=== PATIENT | male | born 1955 | race Caucasian/White ===

== ENCOUNTER → 2016-04-10 | Outpatient (CLI) | payer MEDICARE ==
[~2016-04-10] MED LIST: ALBU0.632 IH; ALPR0.5T72 PO; ASPI-906 PO; BARIUM SUSPENSION 105% (LIQUID POLIBAR PLUS) 240 ML/DOSE PO ONE; BARIUM SUSPENSION 60% (LIQUID EZ PAQUE) 240 ML DOSE PO ONE; BUDE6HFA IH; CHLO500T2 PO; CTLP20T PO; CYCL10TA9 PO; DICL75TA2 PO; FLUT1DIS26 IH; FURO20TA PO; GBPN100C PO; HYDR-757 PO; HYDR25TA4 PO; IBUP-15 PO; LISI1TAB PO; LISI40TA PO; MTF500T PO; NF-METANX PO; ROPI1TAB40 PO; SIMV40TA4 PO; TIOT18CA IH; TRAZ-144 PO; VIT D3 PO; ZANTAC PO; [UNRECOGNIZED DRUG - OTHER] TP
--- OUTSIDE RECORDS SUMMARY | 2016-04-10 11:05 | XMS REPORT ---
Author STARLA Watt [facility] eClinicalWorks Address Unknown Phone Unavailable Care Team Providers Care Meat Seafood Associate Name Role Phone STARLA RUIZ CP Unavailable Allergies, Adverse Reactions, Alerts Substance Reaction Event Type Codeine Sulfate itching Drug Allergy Problems Problem Type Condition Code Onset Dates Condition Status Assessment Thrush B37.0 Active Assessment Essential hypertension I10 Active Problem Essential hypertension I10 Active Problem CAD (coronary artery disease) 414.00 Active Problem Thrush B37.0 Active Problem Tobacco abuse 305.1 Active Problem Chronic bundle branch block 426.50 Active Problem Diabetes type 2, uncontrolled 250.02 Active Problem Hyperlipemia 272.4 Active Medications Medication Code System Code Instructions Start Date End Date Status Dosage Requip [facility] [address]-78 3 MG Orally Once a day September 13, 2014 1 tablet 1 to 3 hours before bedtime Albuterol ND 0 90 mcg/actuation Inhalation every 4 hours as needed Nov 2 puffs Ipratropium-Albuterol [facility] [address]-87 0.5-2.5 (3) MG/3ML Inhalation Four times a day July 21, [address] [place] [facility] [address]-35 5-325 MG Orally every 6 hrs severe pain only June 1 tablet as needed PredniSONE [facility] [address]-06 20 MG Orally Once a day Jan 09, 2015 Feb 08, 2015 3 tablets with food for 7 days, then 2 tablets daily for 5 days, then 1 tablet for [address] [facility] [address]-38 2 MG Orally Once a day in the AM April 21, [address] [facility] [address]-42 40 mg April 27, 2014 1 tablet by Oral route 1 time per day cholesterol Lisinopril [facility] 04408462167 40 MG take 1 tablet by Oral route 1 time per day Zantac [facility] 24878844520 150 MG Orally for heartburn Twice a day [address] [facility] [address]-[address] [facility] [address]-80 369036 UNIT/ML Mouth/Throat 4 times a day JanJan 31, [address] [facility] 12593053445 75 MG TAKE ONE TABLET BY MOUTH TWICE DAILY Jovanny AC [facility] [address]-02 100-10 MG/5ML Orally every 4 hrs Nov 10, 2014 5 ml prn cough Celexa [facility] [address]-22 40 MG Orally Once a day April 21, 2014 1 tablet by Oral route 1 time per day Procedures Procedure Coding System Code Date [facility] VISIT ESTABLISHED PATIENT CPT-4 G0467 Jan 17, 2015 Office Visit, Est Pt., Level 3 CPT-4 56849 Jan 17, 2015 STREP A ASSAY W/OPTIC CPT-4 67733 Jan 17, 2015 Vital Signs Date/Time: Jan 17, 2015 Temperature 98.8 F Weight 241.5 lbs Height 67 in BMI 37.82 Index Blood Pressure Diastolic 102 mmHg Blood Pressure Systolic 162 mmHg Cardiac Monitoring Heart Rate 100 bpm Results No Known Results Summary Purpose eClinicalWorks Submission
--- NOTE | 2016-04-10 13:01 | Diagnostic Imaging Report ---
EXAMINATION: Barium swallow. INDICATION: Choking. COMPARISON: There are no prior studies available for comparison. TECHNIQUE: A double contrast exam was performed. FINDINGS: The patient swallowed the contrast material without difficulty. There was no delay or obstruction to the passage of barium through the esophagus; however, multiple tertiary contractions were noted. These generally indicate ineffective peristalsis. There was a small sliding hiatal hernia but there was no evidence for reflux. The stomach and visualized small bowel are unremarkable for an acute abnormality. IMPRESSION: 1. There is no evidence for obstruction of the esophagus; however, the tertiary contractions do suggest that there is disordered motility of the esophagus. 2. There is a small hiatal hernia but there is no sign of reflux. 3. The stomach and proximal small bowel are unremarkable. Dictated by: Dictated on workstation # [id number]
== END ==
LOC: RAD 11:01
PROVIDERS: ATTEND Nurse Practitioner Family
DX: T17.310A Gastric contents in larynx causing asphyxiation, initial encounter (principal)
CPT/HCPCS: 74220

== ENCOUNTER → 2016-05-01 | Outpatient (CLI) | payer MEDICARE ==
[~2016-05-01] MED LIST changes: -BARIUM SUSPENSION 105% (LIQUID POLIBAR PLUS) 240 ML/DOSE PO ONE; -BARIUM SUSPENSION 60% (LIQUID EZ PAQUE) 240 ML DOSE PO ONE
--- OUTSIDE RECORDS SUMMARY | 2016-05-01 12:44 | XMS REPORT ---
Author Author STARLA RUIZ [facility] Address [address] [place] [address] Care Team Providers Care Wood Patternmaker Apprentice Name Role Phone STARLA RUIZ Unavailable PROBLEMS Type Condition ICD9-CM Code NMU25-RN Code Onset Dates Condition Status SNOMED Code Problem Restless legs syndrome G25.81 Active 222614696 Problem High risk medication use Z79.899 Active 748787549 Problem Non morbid obesity due to excess calories E66.09 Active 259045308 Problem Obesity (BMI 30-39.9) E66.9 Active 258405980 Problem Lesion of skin of face L98.9 Active 982411390249 Problem Dysthymia F34.1 Active 39681860 Problem Chronic left-sided low back pain with left-sided sciatica M54.42 Active 857061536 Problem Tobacco abuse Z72.0 Active 848471692 Problem Tobacco abuse counseling Z71.6 Active 005665394 Assessment Chronic left-sided low back pain with left-sided sciatica M54.42 Oct, Active 754155419 Problem Chronic bundle branch block 426.50 Active 7767667 Assessment Colon cancer screening Z12.11 Oct, Active 071528136 Problem CAD (coronary artery disease) 414.00 Active 11265647 Problem Essential hypertension I10 Active 21080492 Problem Tobacco abuse 305.1 Active 94574255 Problem Thrush B37.0 Active 23147745 Problem Hyperlipemia 272.4 Active 40752347 Problem Seborrhea capitis L21.0 Active 151518299 ALLERGIES Substance Reaction Event Type Date Status Codeine Sulfate itching Drug Allergy Oct, Active SOCIAL HISTORY No smoking Hx information available PLAN OF CARE VITAL SIGNS Height 67 in 2015-11-15 Weight 239.3 lbs 2015-11-15 Heart Rate 87 bpm 2015-11-15 Respiratory Rate 16 2015-11-15 BMI 37.48 kg/m2 2015-11-15 Blood pressure systolic 110 mmHg 2015-11-15 Blood pressure diastolic 72 mmHg 2015-11-15 MEDICATIONS Medication Instructions Dosage Frequency Start Date End Date Duration Status Ketoconazole 1 % Externally 3 times per week with shower 1 application to scalp as needed Feb, Active Aspirin Adult Low Dose 81 MG Orally Once a day 1 tablet 24h Active Alprazolam 0.5 MG Orally Twice a day 1 tablet prn severe anxiety 12h Jul Active Cyclobenzaprine HCl 10 mg Orally 2 times a day 1 tablet prn 12h Active Albuterol 90 mcg/actuation Inhalation every 4 hours as needed 2 puffs Nov, 30 days Active Celebrex 200 mg Orally Once a day 1 capsule 24h June, Active Lisinopril 40 MG TAKE ONE TABLET BY MOUTH ONCE DAILY. 30 Active Ipratropium-Albuterol 0.5-2.5 (3) MG/3ML Inhalation Four times a day 3 ml 6h Jul, 30 days Active Celexa 40 mg Orally Once a day 1 tablet by Oral route 1 time per day 24h Active Symbicort 160-4.5 MCG/ACT Inhalation Twice a day 2 puffs 12h Active Ropinirole HCl 1 MG Orally Once a day in the am 24h Active Zantac 150 MG Orally for heartburn Twice a day 1 tablet 12h 30 Active [place]arr 5-325 MG Orally 2 times a day 1 tablet as needed 12h June, Active Simvastatin 40 MG TAKE 1 TABLET DAILY FOR CHOLESTEROL 90 Active Requip 3 MG Orally Once a day 1 tablet 1 to 3 hours before bedtime 24h Active Hydrochlorothiazide 25 MG 1 tablet Once a day Orally Active RESULTS No Results PROCEDURES Procedure Date Ordered Related Diagnosis Body Site [facility] VISIT ESTABLISHED PATIENT Nov 15, 2015 Office Visit, Est Pt., Level 4 Nov 15, 2015 IMMUNIZATIONS No Known Immunizations
--- NOTE | 2016-05-01 13:28 | Diagnostic Imaging Report ---
CLINICAL INDICATION: Patient with chronic sinusitis and congestion. EXAM: Axial maxillofacial CT scan performed without IV contrast with coronal reformations. COMPARISON: None. FINDINGS: PARANASAL SINUSES: FRONTAL: There is mild mucosal thickening with obstruction of the left frontal recess region. ETHMOID: There is mild patchy mucosal thickening. MAXILLARY: There is a moderate-sized air-fluid level and mild to moderate peripheral mucosal thickening involving the left maxillary sinus. The right maxillary sinus shows no significant sinus disease. SPHENOID: Unremarkable. OTHER PARANASAL SINUS FINDINGS: None. NASAL SEPTUM: There is roughly 6 mm of rightward nasal septal deviation. There is a 6 mm rightward directed nasal septal bony spur. There is encroachment upon the right inferior nasal turbinate. VISUALIZED TEMPORAL BONE STRUCTURES: Unremarkable. BONY STRUCTURES: Unremarkable. EXTRACRANIAL SOFT TISSUE/ ORBITS: There is fatty infiltration of the left parotid gland. There may also be postop changes in this region as well. IMPRESSION: 1: There is moderate to severe left maxillary sinusitis including air-fluid level. 2: There is mild mucosal thickening involving the frontal sinus and ethmoid sinus. 3: There is significant rightward nasal septal deviation and a rightward directed nasal septal bony spur. 4: Fatty infiltration of the left parotid gland. There may also be postop changes in this region as well. Clinical correlation would better evaluate. Dictated by: Dictated on workstation # [id number]
--- NOTE | 2016-05-01 15:10 | Diagnostic Imaging Report ---
INDICATION: Arthritis. Pain in knuckles.. TECHNIQUE: Three views of the bilateral hands at 1:10 PM. CORRELATION STUDY: None. FINDINGS: LEFT HAND: Mild degenerative change with joint space narrowing and osteophyte formation of the interphalangeal joints of the left hand. The metacarpal/phalangeal joints are unremarkable. The carpal bones appear relatively unremarkable. There is mild narrowing of the radiocarpal row with what appears to be likely cystic change about the distal radius. Probable ununited ulnar styloid process fracture. RIGHT HAND: There is deformity about the right fifth metacarpal, likely owing to prior fracture. No acute bony abnormality. There are mild degenerative changes through the interphalangeal joints with minimal narrowing and osteophyte formation. Very mild degenerative change of the first carpal/metacarpal articulation with mild joint space narrowing and minimal radial subluxation. Small cystic change in the superior pole of the scaphoid bone. Narrowing of the radiocarpal row. IMPRESSION: Very mild degenerative changes through the interphalangeal joints of both hands. There also appear to be very mild early degenerative changes at the base of the thumbs, particularly on the right. Narrowing of the radiocarpal row, left greater than right. Dictated by: Dictated on workstation # [id number]
== END ==
LOC: RAD 12:40
PROVIDERS: ATTEND Nurse Practitioner Family
DX: J01.00 Acute maxillary sinusitis, unspecified (principal); J34.2 Deviated nasal septum; J34.89 Other specified disorders of nose and nasal sinuses; K11.8 Other diseases of salivary glands
CPT/HCPCS: 70486

== ENCOUNTER → 2020-01-11 | Outpatient (CLI) | payer MEDICARE ==
[~2020-01-11] MED LIST changes: +RT-ALBUTEROL SULF 2.5 MG/3 ML PRE-MIX VIAL INH ONE
== END ==
LOC: RT 12:35
PROVIDERS: ATTEND Nurse Practitioner Family
DX: R06.02 Shortness of breath (principal)
CPT/HCPCS: 94060; 94726; 94729

== ENCOUNTER 2022-02-03 16:41 | Emergency (ER) | payer MEDICARE ==
[~2022-02-03] VITALS: Ht 167.7 cm; Wt 118.8 kg
[~2022-02-03 16:41] MED LIST changes: -RT-ALBUTEROL SULF 2.5 MG/3 ML PRE-MIX VIAL INH ONE
[2022-02-03] MEDS ORDERED: morphine INJ 10 MG/ML 1ML (SYR OR VIAL) IVP STA (17:05)
[2022-02-03 17:15] LABS: BASOPHILS % (AUTO) 0 % (0-10); EOSINOPHILS # (AUTO) 0.1 10^3/uL (0.0-0.3); EOSINOPHILS % (AUTO) 1 % (0-10); HEMATOCRIT 38 % (40-54); HEMOGLOBIN 12.8 g/dL (13.3-17.7); LYMPHOCYTES % (AUTO) 10 % (12-44); MEAN CORPUSCULAR HEMOGLOBIN 29 pg (25-34); MEAN CORPUSCULAR HGB CONC 34 g/dL (32-36); MEAN CORPUSCULAR VOLUME 86 fL (80-99); MEAN PLATELET VOLUME 9.1 fL (9.0-12.2); MONOCYTES # (AUTO) 0.5 10^3/uL (0.0-1.0); MONOCYTES % (AUTO) 5 % (0-12); NEUTROPHILS # (AUTO) 7.9 10^3/uL (1.8-7.8); NEUTROPHILS % (AUTO) 82 % (42-75); PLATELET COUNT 264 10^3/uL (130-400); WHITE BLOOD COUNT 9.6 10^3/uL (4.3-11.0)
--- NOTE | 2022-02-03 17:51 | ED General ---
General Chief Complaint: Abdominal/GI Problems Stated Complaint: SOA/BLOOD IN STOOL/UTI SYMPTOMS Nursing Triage Note: PT TO RM 5 VIA WC W REPORTS OF BLEEDING IN ABD, UTI SYMPTOMS, AND SOA - PT TACHYPNEIC DURING TRIAGE. PT BROTHER AT BEDSIDE, STATES HE WAS AT [facility] FOR APPROX 10 HRS WHEN PT GOT TIRED OF WAITING AND DECIDED TO COME TO [place] [facility]. PT A&OX4, REPORTS HE WAS TOLD AT [facility] THAT HE'S EXPERIENCING ABD BLEEDING AND ADVISED TO GO TO [place]. Source of Information: Patient Exam Limitations: No Limitations (GENARO SOLORIO MD) History of Present Illness Date Seen by Provider: Feb 03, 2022 Time Seen by Provider: 16:50 Initial Comments This 67-year-old gentleman presents to the emergency room with complaints of abdominal pain, shortness of breath, dysuria, and melena. He was seen at a clinic in [place], [place] and 2 days ago. They were concerned about a possible GI bleed and referred him to the [place] [facility]. He had a prolonged wait in the waiting room and decided to leave before being seen. He was diagnosed with urinary tract infection and started on antibiotics including Cipro and Macrobid. He believes the antibiotics caused him the abdominal pain. He is quite short of breath and wheezing on arrival. He uses an albuterol inhaler and nebulizers at home. He has significant upper abdominal pain but denies nausea, vomiting, diarrhea, or constipation. He has had black melena. He is not anticoagulated. He is febrile on assessment with a temperature of 38.4. He was not aware that he had a fever. He also is unable to urinate and that may have obstruction. 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 (GENARO SOLORIO MD) Allergies and Home Medications Allergies Coded Allergies: codeine (Unverified Allergy, Unknown, 07/19/14) Patient Home Medication List Home Medication List Reviewed: Yes (GENARO SOLORIO MD) Albuterol Sulfate (Albuterol Sulfate 0.63 Mg/3 Ml Ns) 0.63 Mg/3 Ml Vial.neb, 1 EACH IH Q6HR, (Reported) Entered as Reported by: JAMES KAUFMAN on 1/9/13 1504 Alprazolam (Alprazolam) 0.5 Mg Tab.rapdis, 1 EACH PO HS PRN, (Reported) Entered as Reported by: JAMES KAUFMAN on 02/26/12 150 Aspirin (Juan A Chewable) 81 Mg Tab.chew, 81 MG PO DAILY Prescribed by: EUGENE GRIFFIN on 07/19/14906 Budesonide/Formoterol Fumarate (Symbicort 160/4.5 Mcg (Non-Formulary)) 1 Inhaler Aero, 2 PUFF IH BID, (Reported) Entered as Reported by: NICKY MONTES on 07/19/14738 Citalopram Hydrobromide (Celexa) 20 Mg Tablet, 1 EACH PO DAILY, (Reported) Entered as Reported by: JAMES KAUFMAN on 02/26/121503 Cyclobenzaprine Hcl (Cyclobenzaprine Hcl) 10 Mg Tablet, 1 EACH PO BID PRN for PRN, (Reported) Entered as Reported by: NICKY MONTES on 07/19/14738 Dexamethasone (Dexamethasone) 6 Mg Tablet, 6 MG PO DAILY Prescribed by: SERGEI DE LEON on 02/03/221924 Diclofenac Sodium (Diclofenac Sodium) 75 Mg Tablet.dr, 75 MG PO BID, (Reported) Entered as Reported by: NICKY MONTES on 07/19/14738 Hydrochlorothiazide (Hydrochlorothiazide) 25 Mg Tablet, 25 MG PO DAILY, (Reported) Entered as Reported by: NICKY MONTES on 07/19/14738 Hydrocodone Bit/Acetaminophen ([place] 5-325 Tablet) 1 Each Tablet, 1 EA PO Q6H PRN for MILD PAIN, (Reported) Entered as Reported by: NICKY MONTES on 07/19/14738 Lisinopril (Prinivil) 40 Mg Tablet, 40 MG PO DAILY, (Reported) Entered as Reported by: NICKY MONTES on 07/19/14738 Pantoprazole Sodium (Protonix) 40 Mg Tablet.dr, 40 MG PO DAILY Prescribed by: SERGEI DE LEON on 02/03/221924 Ropinirole Hcl (Requip) 1 Mg Tablet, 1 MG PO DAILY, (Reported) Entered as Reported by: NICKY MONTES on 07/19/14738 Simvastatin (Simvastatin) 40 Mg Tablet, 40 MG PO DAILY, (Reported) Entered as Reported by: JAMES KAUFMAN on 02/26/12 1504 Trazodone Hcl (Trazodone Hcl) 50 Mg Tablet, 50 MG PO DAILY, (Reported) Entered as Reported by: NICKY MONTES on 07/19/14738 [Vit D3] , 1,000 UNITS PO DAILY, (Reported) Entered as Reported by: NICKY MONTES on 07/19/14738 [Zantac] , 150 MG PO BID, (Reported) Entered as Reported by: NICKY MONTES on 07/19/14738 Review of Systems Review of Systems Constitutional: see HPI EENTM: no symptoms reported Respiratory: see HPI Cardiovascular: no symptoms reported Gastrointestinal: see HPI Musculoskeletal: no symptoms reported Skin: no symptoms reported Psychiatric/Neurological: No Symptoms Reported Hematologic/Lymphatic: No Symptoms Reported Immunological/Allergic: no symptoms reported (GENARO SOLORIO MD) Past Fepkkhz-Xolaot-Pvtygc Hx Patient Social History Tobacco Use?: Yes Tobacco type used: Cigarettes Smoking Status: Current Everyday Smoker Use of E-Cig and/or Vaping dev: No Substance use?: No Alcohol Use?: No (GENARO SOLORIO MD) Past Medical History Surgeries: Yes Appendectomy, Cardiac (Cardiac cath 2014 demonstrating mild to moderate disease without intervention), Gallbladder, Orthopedic (Cervical spine fusion) Respiratory: Yes Sleep Apnea, COPD, Emphysema Cardiac: Yes (History SVT) Coronary Artery Disease, High Cholesterol, Hypertension, Syncope Neurological: Yes (Restless leg syndrome) Reproductive Disorders: No Genitourinary: No Gastrointestinal: No Hiatal Hernia Musculoskeletal: No (GENARO SOLORIO MD) Physical Exam-Suspected Sepsis Physical Exam Vital Signs Vital Signs - First Documented 02/03/22 16:50 Temp 38.4 Pulse 100 Resp 28 B/P (MAP) 154/97 (116) Pulse Ox 99 O2 Delivery Nasal Cannula O2 Flow Rate 3.00 (SERGEI DE LEON DO) Vital Signs Capillary Refill : Less Than 3 Seconds (GENARO SOLORIO MD) Blood Pressure Mean: 116 Height, Weight, BMI Height: 5'7.00" Weight: 229lbs. oz. 103.749854jt; 42.00 BMI Method: General Appearance: WD/WN, Moderate Distress, Obese HEENT: PERRL/EOMI, Normal ENT Inspection, Other (Mucous membranes dry) Neck: Normal Inspection; No JVD Respiratory: Accessory Muscle Use; No Crackles; Wheezing, Other (Tachypnea) Cardiovascular: No Edema, No Murmur, Tachycardia Gastrointestinal: Soft; No Distended; Tenderness (Across the upper abdomen) Extremity: Normal Inspection, No Pedal Edema Neurologic/Psychiatric: Alert, Oriented x3, No Motor/Sensory Deficits, Normal Mood/Affect Skin: normal color, warm/dry (GENARO SOLORIO MD) Focused Exam Sepsis Stage: Ruled Out Reason for ruling out sepsis: DOES NOT MEET CRITERIA Possible Source: Pulmonary Lactate Level 02/03/22 17:00: Lactic Acid Level 1.24 (SERGEI DE LEON DO) Time of Focused Exam: 19:00 Respiratory: No Accessory Muscle Use, No Respiratory Distress, Wheezing (FAINT EXPIRATORY WHEEZING) Cardiovascular: Regular Rate, Rhythm, No Murmur Capillary Refill: Less Than 3 Seconds Lactic Acid Level Laboratory Tests Test 02/03/22 17:00 Lactic Acid Level 1.24 MMOL/L (0.50-2.00) (SERGEI DE LEON DO) Within 3hrs of presentation: Blood cultures prior to ABX's, Focus exam, Lactate level, Other (NO ANTIBIOTICS PT HAS COVID--TREATED WITH PAXLOVID) (SERGEI DE LEON DO) Progress/Results/Core Measures Suspected Sepsis SIRS Temperature: Pulse: 100 Respiratory Rate: 28 Laboratory Tests 02/03/22 17:00: White Blood Count 9.6 Blood Pressure 154 /97 Mean: 116 02/03/22 17:00: Lactic Acid Level 1.24 Laboratory Tests 02/03/22 17:00: Creatinine 1.05, INR Comment 1.0, Platelet Count 264, Total Bilirubin 0.3 (GENARO SOLORIO MD) Results/Orders Lab Results Laboratory Tests Test 02/03/22 17:00 02/03/22 17:05 02/03/22 17:07 Range/Units White Blood Count 9.6 4.3-11.0 10^3/uL Red Blood Count 4.41 4.30-5.52 10^6/uL Hemoglobin 12.8 L 13.3-17.7 g/dL Hematocrit 38 L 40-54 % Mean Corpuscular Volume 86 80-99 fL Mean Corpuscular Hemoglobin 29 25-34 pg Mean Corpuscular Hemoglobin Concent 34 32-36 g/dL Red Cell Distribution Width 12.3 10.0-14.5 % Platelet Count 264 130-400 10^3/uL Mean Platelet Volume 9.1 9.0-12.2 fL Immature Granulocyte % (Auto) 1 % Neutrophils (%) (Auto) 82 H 42-75 % Lymphocytes (%) (Auto) 10 L 12-44 % Monocytes (%) (Auto) 5 0-12 % Eosinophils (%) (Auto) 1 0-10 % Basophils (%) (Auto) 0 0-10 % Neutrophils # (Auto) 7.9 H 1.8-7.8 10^3/uL Lymphocytes # (Auto) 1.0 1.0-4.0 10^3/uL Monocytes # (Auto) 0.5 0.0-1.0 10^3/uL Eosinophils # (Auto) 0.1 0.0-0.3 10^3/uL Basophils # (Auto) 0.0 0.0-0.1 10^3/uL Immature Granulocyte # (Auto) 0.1 0.0-0.1 10^3/uL Prothrombin Time 13.6 12.2-14.7 SEC INR Comment 1.0 0.8-1.4 Activated Partial Thromboplast Time 25 24-35 SEC Sodium Level 143 135-145 MMOL/L Potassium Level 3.4 L 3.6-5.0 MMOL/L Chloride Level 107 98-107 MMOL/L Carbon Dioxide Level 25 21-32 MMOL/L Anion Gap 11 5-14 MMOL/L Blood Urea Nitrogen 22 H 7-18 MG/DL Creatinine 1.05 0.60-1.30 MG/DL Estimat Glomerular Filtration Rate 77 BUN/Creatinine Ratio 21 Glucose Level 109 H 70-105 MG/DL Lactic Acid Level 1.24 0.50-2.00 MMOL/L Calcium Level 8.9 8.5-10.1 MG/DL Corrected Calcium 9.1 8.5-10.1 MG/DL Total Bilirubin 0.3 0.1-1.0 MG/DL Aspartate Amino Transf (AST/SGOT) 60 H 5-34 U/L Alanine Aminotransferase (ALT/SGPT) 59 H 0-55 U/L Alkaline Phosphatase 75 40-136 U/L C-Reactive Protein High Sensitivity 4.45 H 0.00-0.50 MG/DL Total Protein 6.8 6.4-8.2 GM/DL Albumin 3.8 3.2-4.5 GM/DL Lipase 92 H 8-78 U/L Procalcitonin 0.09 <0.10 NG/ML B-Type Natriuretic Peptide 109.8 H <100.0 PG/ML Influenza Type A (RT-PCR) Not Detected Not Detecte Influenza Type B (RT-PCR) Not Detected Not Detecte SARS-CoV-2 RNA (RT-PCR) Detected H Not Detecte (SERGEI DE LEON DO) My Orders Orders - SERGEI DE LEON DO Ct [facility] Chest/Noang Abd-Pelv W (02/03/22 18:31) Rx-Nirmatrelvir/Ritonavir(Eua) (Rx-Paxlo (02/03/22 19:30) Fluticasone/Salmeterol 113-14 (Airduo Re (02/03/22 21:00) Fluticasone/Salmeterol 113-14 (Airduo Re (02/03/22 19:23) (SERGEI DE LEON DO) Medications Given in ED Current Medications Medications Dose Ordered Sig/Zahraa Route Start Time Stop Time Status Last Admin Dose Admin Albuterol/ Ipratropium 3 ml ONCE ONCE INH 02/03/22 18:30 121822 18:31 DC 02/03/22 19:04 3 ML Dexamethasone Sodium Phosphate 6 mg ONCE ONCE IV 02/03/22 18:15 02/03/22 18:17 DC 02/03/22 18:25 6 MG Iohexol 100 ml ONCE ONCE IV 02/03/22 18:30 02/03/22 18:31 DC 02/03/22 18:45 99 ML Sodium Chloride 100 ml ONCE ONCE IV 02/03/22 18:30 02/03/22 18:31 DC 02/03/22 18:45 70 ML (SERGEI DE LEON DO) Vital Signs/I&O 02/03/22 02/03/22 16:50 19:05 Temp 38.4 Pulse 100 Resp 28 B/P (MAP) 154/97 (116) Pulse Ox 99 97 O2 Delivery Nasal Cannula Nasal Cannula O2 Flow Rate 3.00 3.00 (SERGEI DE LEON DO) Vital Signs/I&O Capillary Refill : Less Than 3 Seconds (GENARO SOLORIO MD) Blood Pressure Mean: 116 Progress Note : Time: 18:07 Progress Note Patient was treated with morphine and was given 4 puffs off of his inhaler with a spacer. He feels significantly improved after those interventions. COVID-[address] of the abdomen and pelvis is pending. Labs are also pending. (GENARO SOLORIO MD) Progress Note : Progress Note 1830--ASSUMED CARE OF PT AT SHIFT CHANGE, PT IS COVID +. DUO NEB TREATMENT HAS BEEN ORDERED. PT HAS RECEIVED DEXAMETHASONE. CT ANGIO CHEST/ABDOMEN-PELVIS IS PENDING. VITALS ARE STABLE. BROTHER AND PT STATE THAT HIS BREATHING DIFFICULTY JUST GOT BAD TODAY, AND WERE UNAWARE OF FEVER UNTIL ARRIVING IN ER REVIEWED ALL TEST RESULTS WITH PT AND HIS BROTHER, WITH WHOM HE LIVES. DISCUSSED ANTICIPATED COURSE, SYMPTOMATIC TREATMENT, PRESCRIPTIONS, NEED FOR QUARANTINE, NEED FOR FOLLOW UP AND RETURN PRECAUTIONS. WILL HAVE PT FOLLOW UP WITH DR. KRUSE FOR REPORTED MELENA. NO CT ABNORMALITIES OF COLON WERE NOTED PT DID NOT HAVE ANY STOOLS DURING ER STAY. HE DID NOT GIVE A URINE SPECIMEN DURING ER STAY. SPACER SENT HOME WITH PT, WELL AIR DUO INHALER, AND PAXLOVID. (SERGEI DE LEON DO) Diagnostic Imaging Diagonstic Imaging: Xray Plain Films/CT/US/NM/MRI: chest Comments Chest x-ray viewed by me and report reviewed. See report below: NAME: SH[facility] REC#: [id number] PT STATUS: REG ER : 1955 PHYSICIAN: GENARO SOLORIO MD ADMIT DATE: 02/03/22/ER Signed Date of Exam:02/03/22 CHEST 1 VIEW, AP/PA ONLY CHEST 1 VIEW, AP/PA ONLY Indication: Cough and shortness of air Comparison: None available. Findings: No focal airspace disease in the visualized lungs. No pleural effusion or pneumothorax. Normal cardiomediastinal silhouette. Impression: 1. No acute cardiopulmonary process by portable radiography. Dictated by: Dictated on workstation # [id number] Dict: 02/03/221748 Trans: 02/03/221749 [facility] [id number] Interpreted by: FABRICIO BEEBE MD Electronically signed by: FABRICIO BEEBE MD 02/03/221749 (GENARO SOLORIO MD) Comments CT ANGIOGRAM OF CHEST / ABDOMEN-PELVIS--PER RADIOLOGIST REPORT AT 1910 FINDINGS: CTA CHEST: No pulmonary emboli. No features of right ventricular strain or pulmonary hypertension. Heart is normal in size without pericardial effusion. Normal caliber thoracic aorta without dissection or penetrating atherosclerotic ulcer. No supraclavicular or axillary lymphadenopathy. No mediastinal or hilar lymphadenopathy. No pleural effusion or pneumothorax. No abnormality in the trachea. There is no pneumonia or edema. There are a few scattered calcified pulmonary nodules indicative of old granulomatous infection. No acute osseous abnormality. CT ABDOMEN AND PELVIS WITH CONTRAST: No free intraperitoneal air or fluid. The liver is normal. Cholecystectomy with mild dilation of the common bile duct due to reservoir effect. Spleen and pancreas are normal in appearance. No adrenal mass. Bilateral renal cysts are minimally complicated with partial rim calcifications. No solid renal mass or obstructive uropathy. Prostate is not enlarged. Stomach is decompressed, limiting assessment. No dilated loops of small bowel or features of active enteritis. No pericolonic inflammatory change. No abdominal or pelvic lymphadenopathy. Normal caliber abdominal aorta without dissection. No concerning focal osseous lesion. IMPRESSION: 1. No acute cardiopulmonary process. Specifically, no pulmonary emboli. 2. No acute obstructive or inflammatory process in the abdomen or pelvis. There are no features of colitis, diverticulitis or active enteritis. 3. Additionally, there are no features of active GI bleed. CXR--PER RADIOLOGIST REPORT --PRIOR TO MY ARRIVAL Findings: No focal airspace disease in the visualized lungs. No pleural effusion or pneumothorax. Normal cardiomediastinal silhouette. Impression: 1. No acute cardiopulmonary process by portable radiography. Reviewed: Reviewed by Me (SERGEI DE LEON DO) Departure Impression Primary Impression: COVID-19 Additional Impressions: COPD exacerbation Melena Upper abdominal pain Disposition: HOME, SELF-CARE Condition: Stable Departure-Patient Inst. Decision time for Depature: 19:20 (SERGEI DE LEON DO) [facility] Primary Care Physician Patient Instructions: Bloody Stools, Adult (DC), COPD Exacerbation, Adult ED, COVID-19 ED, COVID-19 Home Care/Discharge, Nirmatrelvir and Ritonavir FDA Fact Sheet, Preventing the Spread of an Infectious Disease Add. Discharge Instructions: HOME, REST TAKE PAXLOVID PRESCRIBED FOR COVID USE YOUR AIR-DUO INHALER TWICE A DAY EVERY DAY YOU MAY USE YOUR ALBUTEROL INHALER EVERY 4 HOURS NEEDED--USE SPACER AT ALL TIMES. TYLENOL AND MOTRIN NEEDED FOR PAIN OR FEVER LOTS OF CLEAR LIQUIDS FOLLOW UP WITH [facility] IN 3-4 DAYS IF NO BETTER, RETURN TO ER IF WORSE FOLLOW UP WITH DR. KRUSE, GENERAL SURGEON, FOR FURTHER EVALUATION OF REPORTED BLOOD IN STOOLS. CALL IN THE MORNING TO SCHEDULE AN APPOINTMENT. All discharge instructions reviewed with patient and/or family. Voiced understanding. Scripts Dexamethasone (Dexamethasone) 6 Mg Tablet 6 MG PO DAILY, #10 TAB Prov: SERGEI DE LEON DO 02/03/22 Pantoprazole Sodium (Protonix) 40 Mg Tablet.dr 40 MG PO DAILY, #15 TAB Prov: SERGEI DE LEON DO 02/03/22 Copy Copies To 1: [facility]/GENARO JACINTO MD Feb 03, 2022 17:51 SERGEI DE LEON DO Feb 03, 2022 19:11
[2022-02-03 17:53] LABS: PROTHROMBIN TIME PATIENT 13.6 SEC (12.2-14.7)
[2022-02-03 18:03] LABS: ALBUMIN 3.8 GM/DL (3.2-4.5); POTASSIUM 3.4 MMOL/L (3.6-5.0)
[2022-02-03 18:04] LABS: CALCIUM 8.9 MG/DL (8.5-10.1)
[2022-02-03 18:06] LABS: TOTAL PROTEIN 6.8 GM/DL (6.4-8.2)
[2022-02-03 18:07] LABS: BILIRUBIN,TOTAL 0.3 MG/DL (0.1-1.0)
[2022-02-03 18:09] LABS: CREATININE SERUM 1.05 MG/DL (0.60-1.30)
[2022-02-03] MEDS ORDERED: IOHEXOL 350 MG/ML 100 ML (OMNIPAQUE 350) VIAL IV ONE (18:30)
[2022-02-03] MEDS ORDERED: RT-ALBUTEROL/IPRATROPIUM 3 ML (DUONEB) VIAL INH ONE (18:30)
[2022-02-03] MEDS ORDERED: NS 100 ML (IVPB) BAG IV ONE (18:30)
--- NOTE | 2022-02-03 19:07 | Diagnostic Imaging Report ---
INDICATION: Chest pain and abdominal pain. GI bleed. TECHNIQUE: CTA chest, abdomen and pelvis. Thin axial sections through the chest, abdomen and pelvis are obtained following intravenous contrast bolus. Multiplanar MIP images were reconstructed and reviewed. All CT scans use one or more of the following dose optimizing techniques: automated exposure control, MA and/or KvP adjustment based on patient size and exam type or iterative reconstruction. COMPARISON: None available. FINDINGS: CTA CHEST: No pulmonary emboli. No features of right ventricular strain or pulmonary hypertension. Heart is normal in size without pericardial effusion. Normal caliber thoracic aorta without dissection or penetrating atherosclerotic ulcer. No supraclavicular or axillary lymphadenopathy. No mediastinal or hilar lymphadenopathy. No pleural effusion or pneumothorax. No abnormality in the trachea. There is no pneumonia or edema. There are a few scattered calcified pulmonary nodules indicative of old granulomatous infection. No acute osseous abnormality. CT ABDOMEN AND PELVIS WITH CONTRAST: No free intraperitoneal air or fluid. The liver is normal. Cholecystectomy with mild dilation of the common bile duct due to reservoir effect. Spleen and pancreas are normal in appearance. No adrenal mass. Bilateral renal cysts are minimally complicated with partial rim calcifications. No solid renal mass or obstructive uropathy. Prostate is not enlarged. Stomach is decompressed, limiting assessment. No dilated loops of small bowel or features of active enteritis. No pericolonic inflammatory change. No abdominal or pelvic lymphadenopathy. Normal caliber abdominal aorta without dissection. No concerning focal osseous lesion. IMPRESSION: 1. No acute cardiopulmonary process. Specifically, no pulmonary emboli. 2. No acute obstructive or inflammatory process in the abdomen or pelvis. There are no features of colitis, diverticulitis or active enteritis. 3. Additionally, there are no features of active GI bleed. Dictated by: Dictated on workstation # [id number]
[2022-02-03] MEDS ORDERED: RT--FLUTICASONE/SALMETEROL 113-14 (AIRDUO RespiCLICK) IH ONE (19:23)
[2022-02-03] MEDS ORDERED: PANT40TA2 PO (19:25)
[2022-02-03] MEDS ORDERED: DEXA6TAB PO (19:25)
[2022-02-03] MEDS ORDERED: RX-NIRMATRELVIR/RITONAVIR (PAXLOVID) #30 TABS PO SCH (19:30)
[2022-02-03 19:40] VITALS: BP 135/76
[2022-02-03 19:44] LABS: BILIRUBIN,URINE NEGATIVE (NEGATIVE); CLARITY,URINE CLEAR; COLOR,URINE YELLOW; GLUCOSE, URINE (UA) TRACE (NEGATIVE); KETONES,URINE NEGATIVE (NEGATIVE); LEUKOCYTE ESTERASE ,URINE NEGATIVE (NEGATIVE); NITRITE,URINE NEGATIVE (NEGATIVE); PROTEIN,URINE TRACE (NEGATIVE)
[2022-02-03 19:55] LABS: BACTERIA,URINE TRACE /HPF; RBC,URINE RARE /HPF; SQUAMOUS EPITHELIAL CELL,UR 0-2 /HPF; WBC,URINE RARE /HPF
[2022-02-03] MEDS ORDERED: RT--FLUTICASONE/SALMETEROL 113-14 (AIRDUO RespiCLICK) IH SCH (21:00)
== END 2022-02-03 19:40 | disposition home or self-care (01) ==
LOC: EDUNIT# 16:41 → ER 16:44
DX: U07.1 COVID-19 (principal); J44.1 Chronic obstructive pulmonary disease with (acute) exacerbation; K92.1 Melena; N39.0 Urinary tract infection, site not specified; F17.210 Nicotine dependence, cigarettes, uncomplicated; Z87.19 Personal history of other diseases of the digestive system; Z90.49 Acquired absence of other specified parts of digestive tract; Z88.5 Allergy status to narcotic agent
CPT/HCPCS: 36415; 71045; 71275; 74177; 80053; 81000; 83605; 83690; 83880; 84145; 85025; 85610; 85730; 86141; 87040; 87088; 87636; 94640; 94664